=== PATIENT | female | born 1955 | race Caucasian/White ===

== ENCOUNTER 2016-12-11 05:55 | Day surgery (SDC) | payer BC ==
[2016-12-11] MEDS ORDERED: DIPRIVAN 200 MG/20 ML IV ONE (05:56)
[2016-12-11] MEDS ORDERED: Ketamine HCl 50 MG/ML IV ONE (05:56)
[2016-12-11 06:17] VITALS: O2SAT 96
[2016-12-11] MEDS ORDERED: Lactated Ringers 1,000 ML IV SCH (06:30)
[2016-12-11 08:15] VITALS: PULSE 58
[2016-12-11] MEDS ORDERED: Lactated Ringers 1,000 ML IV ONE (08:33)
[2016-12-11 08:48] VITALS: BP 99/61
--- NOTE | 2016-12-11 09:45 | OP ---
SURGERY DATE/TIME: 12/11/2016 0700 PREOPERATIVE DIAGNOSIS: Screening colonoscopy. POSTOPERATIVE DIAGNOSIS: Normal colon. PROCEDURE: Colonoscopy. SURGEON: Markus Sebastian M.D. ANESTHESIA: MAC by Aric Dyer CRNA. ESTIMATED BLOOD LOSS: None. SPECIMENS: None. DESCRIPTION OF PROCEDURE: After informed written consent was obtained, the patient was taken to the endoscopy suite. A digital rectal exam showed normal sphincter tone and no internal lesions. The scope was inserted into the rectum and sequentially the entire colonic mucosa was traversed. The level of cecum was reached and verified with direct visualization of ileocecal valve. Upon withdrawal careful mucosal inspection revealed no gross abnormalities. Prior to withdrawal retroflexion was performed and was within normal limits. The scope was removed and the patient was transferred to the recovery room in excellent condition.
== END 2016-12-11 08:53 | disposition home or self-care (01) ==
LOC: SDC 05:55
PROVIDERS: ATTEND Family Medicine
PROC: 0DJD8ZZ Inspection of Lower Intestinal Tract, Via Natural or Artificial Opening Endoscopic (ICD-10-PCS; principal; 2016-12-11)
DX: Z12.11 Encounter for screening for malignant neoplasm of colon (principal); Z80.0 Family history of malignant neoplasm of digestive organs
CPT/HCPCS: 00810; J2704

== ENCOUNTER 2018-04-24 16:27 | Emergency (ER) | payer BC ==
[2018-04-24] MEDS ORDERED: MORPHINE SULFATE 10 MG/ML IV ONE (16:54)
[2018-04-24] MEDS ORDERED: Zofran 4 MG/2 ML VIAL IV ONE (16:54)
[2018-04-24] MEDS ORDERED: MORPHINE SULFATE 10 MG/ML ONE (16:59)
[2018-04-24] MEDS ORDERED: Sodium Chloride 0.9% 1000 ML 1,000 ML ONE (16:59)
[2018-04-24] MEDS ORDERED: Sodium Chloride 0.9% 1000 ML 1,000 ML IV SCH (17:00)
--- NOTE | 2018-04-24 17:01 | ERPHSYRPT ---
- History of Present Illness Time Seen by Provider: 04/24/18 16:45 Historian: patient Exam Limitations: clinical condition Patient Subjective Stated Complaint: STATES HAD SUDDEN ONSET OF MIDSTERNAL CHEST PAIN THAT GETS WORSE WITH DEEP BREATHING. CRYING AT TIMES, STATING SHE'S REALLY SCARED. BROTHER ONE YEAR AGO FROM A HEART ATTACK. Triage Nursing Assessment: AMBULATED TO ROOM PER SELF. SKIN W/D, COLOR NORMAL, RESP NONLABORED. PATIENT TEARFUL AND ANXIOUS. BREATH SOUNDS NORMAL, HEART TONES REGULAR. DENIES ANY HX OF HEART DISEASE. Physician History: PATIENT COMPLAINS OF ACUTE ONSET OF SEVERE EPIGASTRIC PAIN ONSET 2 HOURS PREVIOUS TO ARRIVAL, PAIN SCALE 10/10 INITIALLY, DECREASED TO 6/10 UPON ARRIVAL. DENIES NAUSEA, EMESIS OR RADIATION OF PAIN TO HER BACK. DENIES DYSPNEA , CHEST PAIN, DIAPHORESIS OR PALPITATIONS. Timing/Duration: today Activities at Onset: none Quality: sharpness, stabbing Abdominal Pain Onset Location: RUQ, epigastric Pain Radiation: no radiation Severity of Pain-Max: severe Severity of Pain-Current: moderate Modifying Factors: Improves With: nothing Associated Symptoms: denies symptoms Previous symptoms: no prior history Allergies/Adverse Reactions: No Known Drug Allergies Allergy (Verified 04/24/18 16:44) Hx Tetanus, Diphtheria Vaccination/Date Given: Yes Hx Influenza Vaccination/Date Given: Yes Hx Pneumococcal Vaccination/Date Given: No - Review of Systems Constitutional: No Fever, No Chills Eyes: No Symptoms Ears, Nose, & Throat: No Symptoms Respiratory: No Symptoms, No Cough, No Dyspnea Cardiac: No Symptoms, No Chest Pain, No Edema, No Syncope Abdominal/Gastrointestinal: Abdominal Pain, No Nausea, No Vomiting, No Diarrhea Genitourinary Symptoms: No Symptoms, No Dysuria Musculoskeletal: No Symptoms, No Back Pain, No Neck Pain Skin: No Rash Neurological: No Dizziness, No Focal Weakness, No Sensory Changes Psychological: No Symptoms Endocrine: No Symptoms All Other Systems: Reviewed and Negative - Past Medical History Pertinent Past Medical History: Yes Neurological History: No Pertinent History ENT History: No Pertinent History Cardiac History: No Pertinent History Respiratory History: No Pertinent History Endocrine Medical History: No Pertinent History Musculoskeletal History: Osteoporosis GI Medical History: No Pertinent History History: No Pertinent History Psycho-Social History: No Pertinent History Female Reproductive Disorders: Other Other Medical History: states hx of ovarian cyst,"have osteop. but don't want to take medicine for that yet" - Past Surgical History Past Surgical History: Yes Neuro Surgical History: No Pertinent History Cardiac: No Pertinent History Respiratory: No Pertinent History Gastrointestinal: No Pertinent History Genitourinary: No Pertinent History Musculoskeletal: Other Female Surgical History: Section, Other Other Surgical History: ovarian cyst removed, fasciaotomy lefty feet, x one - Social History Smoking Status: Former smoker Exposure to second hand smoke: No Drug Use: none Patient Lives Alone: No - Female History Hx Now: No - Nursing Vital Signs Nursing Vital Signs: Initial Vital Signs Pulse Rate 56 L 04/24/18 16:32 Respiratory Rate 18 04/24/18 16:32 Blood Pressure 153/78 04/24/18 16:32 O2 Sat by Pulse Oximetry 100 04/24/18 16:32 Pain Scale Pain Intensity 0 - Physical Exam General Appearance: mild distress Eye Exam: PERRL/EOMI, eyes nml inspection Ears, Nose, Throat Exam: normal ENT inspection, pharynx normal, moist mucous membranes Neck Exam: normal inspection, non-tender, supple, full range of motion Respiratory Exam: normal breath sounds, lungs clear, No respiratory distress Cardiovascular Exam: regular rate/rhythm, normal heart sounds Gastrointestinal/Abdomen Exam: soft, normal bowel sounds (MARKED EPIGASTRIC AND RIGHT UPPER QUAD TENDERNESS), No tenderness, No mass Back Exam: normal inspection, normal range of motion, No CVA tenderness, No vertebral tenderness Extremity Exam: normal inspection, normal range of motion, pelvis stable Neurologic Exam: alert, oriented x 3, cooperative, normal mood/affect, nml cerebellar function, sensation nml, No motor deficits Skin Exam: normal color, warm, dry SpO2: 100 - Course EKG Interpreted by Me: RATE, Sinus Rhythm, Sinus Akash, NORMAL AXIS - Radiology Exams Chest X-ray Interpretation: Interpreted by me, Negative, No Infiltrates - CT Exams Abdomen/Pelvis CT Interpretation: Tele-radiologist Report (THERE IS MILD COLONIC DIVERTICULOSIS WITHOUT EVIDENCE OF ACUTE DIVERTICULITIS, NORMAL APPENDIX,NORMAL GALLBLADDER AND BILE DUCTS WITH NO STONES, OR DUCTAL DILATION) Ordered Tests: Active Orders 24 hr Category Date Time Status Clean Catch Urine Specimen STAT Care 04/24/18 16:54 Active EKG-ER Only STAT Care 04/24/18 16:54 Active IV Insertion STAT Care 04/24/18 16:54 Active ABDOMEN AND PELVIS W CONTRAST [CT] Stat Exams 04/24/18 16:55 Taken CHEST 1 VIEW (PORTABLE) Stat Exams 04/24/18 16:55 Taken AMYLASE Stat Lab 04/24/18 17:00 Completed CBC W DIFF Stat Lab 04/24/18 17:00 Completed CMP Stat Lab 04/24/18 17:00 Completed LIPASE Stat Lab 04/24/18 17:00 Completed TROPONIN Q3H Lab 04/24/18 17:00 Completed TROPONIN Q3H Lab 04/24/18 20:00 Ordered TROPONIN Q3H Lab 04/24/18 23:00 Ordered TROPONIN Q3H Lab 04/25/18 02:00 Ordered TROPONIN Q3H Lab 04/25/18 05:00 Ordered UA W/RFX UR CULTURE Stat Lab 04/24/18 17:40 Completed Medication Summary Generic Name Dose Route Start Last Admin Trade Name Freq PRN Reason Stop Dose Admin Sodium Chloride 1,000 mls @ 200 mls/hr 04/24/18 17:00 04/24/18 17:01 Sodium Chloride 0.9% 1000 Ml IV 05/24/18 16:59 200 mls/hr .Q5H SKYLAR Administration Discontinued Medications Generic Name Dose Route Start Last Admin Trade Name Freq PRN Reason Stop Dose Admin Morphine Sulfate 6 mg 04/24/18 16:54 04/24/18 17:00 Morphine Sulfate 10 Mg/Ml IV 04/24/18 16:55 6 mg STAT ONE Administration Morphine Sulfate Confirm 04/24/18 16:59 Morphine Sulfate 10 Mg/Ml Administered 04/24/18 17:00 Dose 10 mg .ROUTE .STK-MED ONE Ondansetron HCl 4 mg 04/24/18 16:54 04/24/18 17:11 Zofran 4 Mg/2 Ml Vial IV 04/24/18 16:55 4 mg STAT ONE Administration Ondansetron HCl Confirm 04/24/18 17:11 Zofran 4 Mg/2 Ml Vial Administered 04/24/18 17:12 Dose 4 mg .ROUTE .STK-MED ONE Pantoprazole Sodium 40 mg 04/24/18 19:03 Protonix 40 Mg Iv IV 04/24/18 19:04 STAT ONE Pantoprazole Sodium Confirm 04/24/18 19:04 Protonix 40 Mg Iv Administered 04/24/18 19:05 Dose 40 mg IV .STK-MED ONE Lab/Rad Data: Laboratory Result Diagrams 04/24/18 17:00 04/24/18 17:00 Laboratory Results 04/24/18 04/24/18 04/24/18 Range/Units 17:40 17:00 17:00 WBC (4.0-10.5) K/mm3 RBC (4.1-5.4) M/mm3 Hgb (12.0-16.0) gm/dl Hct (35-47) % MCV (78-100) fl MCH (26-32) pg MCHC (32-36) g/dl RDW (11.5-14.0) % Plt Count (150-450) K/mm3 MPV (6-9.5) fl Gran % (36.0-66.0) % Eos # (Auto) (0-0.5) Absolute Lymphs (auto) (1.0-4.6) Absolute Monos (auto) (0.0-1.3) Lymphocytes % (24.0-44.0) % Monocytes % (0.0-12.0) % Eosinophils % (0.00-5.0) % Basophils % (0.0-0.4) % Absolute Granulocytes (1.4-6.9) Basophils # (0-0.4) Sodium 141 (137-145) mmol/L Potassium 5.2 H (3.5-5.1) mmol/L Chloride 103 (98-107) mmol/L Carbon Dioxide 31 H (22-30) mmol/L Anion Gap 11.5 (5-15) MEQ/L BUN 17 (7-17) mg/dL Creatinine 0.76 (0.52-1.04) mg/dL Estimated GFR > 60.0 ML/MIN Glucose 101 (74-106) mg/dL Calcium 10.0 (8.4-10.2) mg/dL Total Bilirubin 0.60 (0.2-1.3) mg/dL AST 42 H (14-36) U/L ALT 49 H (0-35) U/L Alkaline Phosphatase 68 (38-126) U/L Troponin I < 0.012 (0.000-0.034) ng/mL Serum Total Protein 7.4 (6.3-8.2) g/dL Albumin 4.4 (3.5-5.0) g/dL Amylase 70 (30-110) U/L Lipase 42 (23-300) U/L Urine Color STRAW (YELLOW) Urine Appearance CLEAR (CLEAR) Urine pH 8.0 (5-6) Ur Specific [place] 1.005 (1.005-1.025) Urine Protein NEGATIVE (Negative) Urine Ketones NEGATIVE (NEGATIVE) Urine Blood NEGATIVE (0-5) Vazquez/ul Urine Nitrite NEGATIVE (NEGATIVE) Urine Bilirubin NEGATIVE (NEGATIVE) Urine Urobilinogen NEGATIVE (0-1) mg/dL Ur Leukocyte Esterase NEGATIVE (NEGATIVE) Urine WBC (Auto) NONE (0-5) /HPF Urine RBC (Auto) NONE (0-2) /HPF U Epithel Cells (Auto) NONE (FEW) /HPF Urine Bacteria (Auto) NONE (NEGATIVE) /HPF Unidentified Crystals 2-5 (NEGATIVE) /HPF Urine Culture Reflexed NO (NO) Urine Glucose NEGATIVE (NEGATIVE) mg/dL 04/24/18 Range/Units 17:00 WBC 5.1 (4.0-10.5) K/mm3 RBC 4.67 (4.1-5.4) M/mm3 Hgb 13.7 (12.0-16.0) gm/dl Hct 41.5 (35-47) % MCV 88.9 (78-100) fl MCH 29.3 (26-32) pg MCHC 33.0 (32-36) g/dl RDW 13.1 (11.5-14.0) % Plt Count 194 (150-450) K/mm3 MPV 9.6 H (6-9.5) fl Gran % 51.6 (36.0-66.0) % Eos # (Auto) 0.08 (0-0.5) Absolute Lymphs (auto) 1.61 (1.0-4.6) Absolute Monos (auto) 0.73 (0.0-1.3) Lymphocytes % 31.8 (24.0-44.0) % Monocytes % 14.4 H (0.0-12.0) % Eosinophils % 1.6 (0.00-5.0) % Basophils % 0.6 (0.0-0.4) % Absolute Granulocytes 2.62 (1.4-6.9) Basophils # 0.03 (0-0.4) Sodium (137-145) mmol/L Potassium (3.5-5.1) mmol/L Chloride (98-107) mmol/L Carbon Dioxide (22-30) mmol/L Anion Gap (5-15) MEQ/L BUN (7-17) mg/dL Creatinine (0.52-1.04) mg/dL Estimated GFR ML/MIN Glucose (74-106) mg/dL Calcium (8.4-10.2) mg/dL Total Bilirubin (0.2-1.3) mg/dL AST (14-36) U/L ALT (0-35) U/L Alkaline Phosphatase (38-126) U/L Troponin I (0.000-0.034) ng/mL Serum Total Protein (6.3-8.2) g/dL Albumin (3.5-5.0) g/dL Amylase (30-110) U/L Lipase (23-300) U/L Urine Color (YELLOW) Urine Appearance (CLEAR) Urine pH (5-6) Ur Specific [place] (1.005-1.025) Urine Protein (Negative) Urine Ketones (NEGATIVE) Urine Blood (0-5) Vazquez/ul Urine Nitrite (NEGATIVE) Urine Bilirubin (NEGATIVE) Urine Urobilinogen (0-1) mg/dL Ur Leukocyte Esterase (NEGATIVE) Urine WBC (Auto) (0-5) /HPF Urine RBC (Auto) (0-2) /HPF U Epithel Cells (Auto) (FEW) /HPF Urine Bacteria (Auto) (NEGATIVE) /HPF Unidentified Crystals (NEGATIVE) /HPF Urine Culture Reflexed (NO) Urine Glucose (NEGATIVE) mg/dL - Progress Progress: improved Progress Note: 04/24/18 19:13 IV NORMAL SALINE 200ML/HR, ZOFRAN 4MG, MORPHINE 6MG IV. PROTONIX 40MG IV Counseled pt/family regarding: lab results, diagnosis, need for follow-up, rad results - Departure Time of Disposition: 19:15 Departure Disposition: Home Clinical Impression: ACUTE BILARY COLIC Condition: Stable Critical Care Time: No Referrals: JESUS MANUEL MUELLER [Primary Care Provider] - Additional Instructions: BEGIN PROTONIX 20MG DAILY FOR 2 WEEKS. ZOFRAN 4MG EVERY 6 HOURS FOR NAUSEA. [place] 5/325 EVERY 6 HOURS FOR PAIN. AVOID DRIVING MOTOR VEHICLE WHILE TAKING [place]. CONSULT YOUR PRIMARY CARE PROVIDER FOR EVALUATION AND REVIEW OF EMERGENCY VISIT. RETURN TO EMERGENCY ROOM FOR RECURRENCE OF PAIN. Prescriptions: Hydrocodone/APAP 5-325 Tab^^^ [[place] 5-325 Tablet^^^] 1 tab PO Q6HPRN PRN #10 tablet MDD 4 PRN Reason: Pain Ondansetron ODT 4 MG [Zofran Odt 4 mg] 4 mg PO Q6H PRN PRN #10 tab.rapdis PRN Reason: Nausea Pantoprazole 20 mg [Protonix 20MG Tablet] 20 mg PO DAILY #15 tab
[2018-04-24 17:10] LABS: BASOPHIL % 0.6 % (0.0-0.4); Basophil (Absolute #) 0.03 (0-0.4); Eosinophil % 1.6 % (0.00-5.0); Eosinophil (Absolute #) 0.08 (0-0.5); Granulocyte Absolute (ANC) 2.62 (1.4-6.9); Granulocytes % 51.6 % (36.0-66.0); Hematocrit 41.5 % (35-47); Hemoglobin 13.7 gm/dl (12.0-16.0); Lymphocyte (Absolute #) 1.61 (1.0-4.6); Lymphocytes % 31.8 % (24.0-44.0); Mean Cell Volume 88.9 fl (78-100); Mean Corpuscular Hemoglobin 29.3 pg (26-32); Mean Platelet Volume 9.6 fl (6-9.5); Monocyte (Absolute #) 0.73 (0.0-1.3); Monocytes % 14.4 % (0.0-12.0); Platelet Count 194 K/mm3 (150-450); Red Blood Count 4.67 M/mm3 (4.1-5.4); Red Cell Distribution Width 13.1 % (11.5-14.0); White Blood Count 5.1 K/mm3 (4.0-10.5)
[2018-04-24] MEDS ORDERED: Zofran 4 MG/2 ML VIAL ONE (17:11)
[2018-04-24 17:38] LABS: ALBUMIN 4.4 g/dL (3.5-5.0); ALKALINE PHOSPHATASE 68 U/L (38-126); AMYLASE 70 U/L (30-110); ANION GAP 11.5 MEQ/L (5-15); BLOOD UREA NITROGEN 17 mg/dL (7-17); CHLORIDE 103 mmol/L (98-107); Carbon Dioxide 31 mmol/L (22-30); Creatinine 1 0.76 mg/dL (0.52-1.04); Glucose 101 mg/dL (74-106); LIPASE 42 U/L (23-300); Potassium 5.2 mmol/L (3.5-5.1); SGOT/AST 42 U/L (14-36); SGPT/ALT 49 U/L (0-35); SODIUM 141 mmol/L (137-145); Total Protein 7.4 g/dL (6.3-8.2)
[2018-04-24 18:04] LABS: Appearance CLEAR (CLEAR); Bilirubin NEGATIVE (NEGATIVE); Blood NEGATIVE Ery/ul (0-5); Glucose NEGATIVE (NEGATIVE); Ketones NEGATIVE (NEGATIVE); Leukocyte Esterase NEGATIVE (NEGATIVE); Nitrite NEGATIVE (NEGATIVE); Protein,Urine Dip NEGATIVE (Negative); Specific Gravity 1.005 (1.005-1.025); Urobilinogen NEGATIVE mg/dL (0-1)
[2018-04-24] MEDS ORDERED: PROTONIX 40 MG IV IV ONE ×2 (19:03→19:04)
[2018-04-24 19:38] VITALS: BP 119/68; PULSE 77; O2SAT 98
--- NOTE | 2018-04-24 22:56 | XRAY ---
Indication: Right upper quadrant pain. Multiple contiguous axial images obtained through the abdomen and pelvis using 80 cc Isovue 370 contrast only. Comparison: None Lung bases demonstrates minimal bibasilar atelectasis/scarring. No infiltrate or effusion. Heart is not enlarged. Noncontrasted stomach and bowel loops appear nonobstructed. Normal appendix. Moderate diffuse scattered colonic fecal debris throughout including rectum. No free fluid/air. 5 mm right mid renal cortical cyst. Remaining liver, gallbladder, pancreas, spleen, adrenal glands, kidneys, ureters, bladder, and uterus appear unremarkable. Minimal aortic calcifications. No AAA or pathologic retroperitoneal lymphadenopathy. Osseous structures intact with multilevel thoracolumbar Schmorl nodes, L4 limbus vertebrae, a mild dextroscoliosis. Tiny fatty umbilical hernia. Impression: 1. Moderate fecal stasis without obstruction, tiny right renal cyst, and tiny fatty umbilical hernia. 2. Remaining CT abdomen/pelvis with contrast exam is negative. Comment: Preliminary interpretation was made by [facility] who does not report above noncritical findings. CTDI 16.45
--- NOTE | 2018-04-24 22:56 | XRAY ---
Indication: Dyspnea. Comparison: None Portable chest demonstrates normal heart and lungs. Bony thorax intact with mild degenerative changes.
== END 2018-04-24 19:34 | disposition home or self-care (01) ==
LOC: ED 16:27
DX: K80.50 Calculus of bile duct without cholangitis or cholecystitis without obstruction (principal); R07.89 Other chest pain; R10.13 Epigastric pain; R10.11 Right upper quadrant pain
CPT/HCPCS: 36000; 36415; 71045; 74177; 80053; 81001; 82150; 83690; 84484; 85025; 93005; 96360; 96361; 96374; 96375; 99284; J2270; J2405

== ENCOUNTER 2021-09-08 03:45 | Emergency (ER) | payer BC ==
[2021-09-08] MEDS ORDERED: solu-MEDROL 125 MG, Sterile H2O 10 ml 2 ML IM ONE ×2 (04:10)
[2021-09-08] MEDS ORDERED: Sterile H2O 10 ml IJ ONE (04:11)
[2021-09-08] MEDS ORDERED: solu-MEDROL ONE (04:12)
[2021-09-08] MEDS ORDERED: PERCOCET TABLET 5/325MG PO STA ×2 (04:30)
--- NOTE | 2021-09-08 04:39 | ERPHSYRPT ---
- History of Present Illness Time Seen by Provider: 09/08/21 04:10 Source: patient Patient Subjective Stated Complaint: pt states she has had pain in shoulder off and on following surgery on right shoulder 14 months ago. Pt rates p;ain as 12/17 Triage Nursing Assessment: arrived in er crying and holding right shoulder. pt states she has been having pain since yesterday. Physician History: This is a 66-year-old right-handed white female patient of Dr. Ignacio Jacob who 14 months ago underwent a right rotator cuff surgery. Since her surgery she states that she has had intermittent difficulty in the right shoulder with pain. Postoperatively, she had 8 months of physical therapy because of the aching she was experiencing. In December 2020 patient was given a prescription for [place] 5/325 and she still has 2 tablets left. 3 weeks ago, patient was pruning in her yard and states that she suddenly had pain and could not move her right arm. She did not fall. The pain subsided. 2 days ago, the patient was at a movie theater with her grandson and went to reach for the popcorn when she suddenly had the pain recur and could not move her arm. The pain improved to the point where she could at least move it until last night when she had the pain recur without any kind of activity. She chose not to take any of the remaining 2 tablets of [place] 5/325 and instead took 3 ibuprofen 200 mg tablets. She has not had a fall or traumatic injury to the right shoulder at any time. She does not have chest pain. She does not have shortness of breath. She was concerned about a problem with the surgical site at the right shoulder. Occurred: yesterday Quality: aching, throbbing Severity of Pain-Max: moderate Severity of Pain-Current: mild (To moderate) Extremities Pain Location: shoulder: right Modifying Factors: Improves With: movement Associated Symptoms: none, No chest discomfort, No chest pain, No dyspnea, No neck pain, No short of breath, No vomiting Allergies/Adverse Reactions: No Known Drug Allergies Allergy (Verified 09/08/21 04:01) Hx Tetanus, Diphtheria Vaccination/Date Given: Yes Hx Influenza Vaccination/Date Given: Yes Hx Pneumococcal Vaccination/Date Given: No Travel Risk - International Travel Have you traveled outside of the country in past 3 weeks: No - Coronavirus Screening Are you exhibiting any of the following symptoms?: No Close contact with a COVID-19 positive Pt in past 14-21 Days: No - Vaccine Status Have you recieved a Covid-19 vaccination: Yes 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 - Vaccination Dates Dates if Unknown: unknown - Review of Systems Constitutional: No Symptoms Eyes: No Symptoms Ears, Nose, & Throat: No Symptoms Respiratory: No Symptoms Cardiac: No Symptoms Abdominal/Gastrointestinal: No Symptoms Genitourinary Symptoms: No Symptoms Musculoskeletal: Joint Pain (Right shoulder) Skin: No Symptoms Neurological: No Symptoms Psychological: No Symptoms Endocrine: No Symptoms Hematologic/Lymphatic: No Symptoms Immunological/Allergic: No Symptoms All Other Systems: Reviewed and Negative - Past Medical History Pertinent Past Medical History: Yes Neurological History: No Pertinent History ENT History: No Pertinent History Cardiac History: No Pertinent History Respiratory History: No Pertinent History Endocrine Medical History: No Pertinent History Musculoskeletal History: Fibromyalgia, Osteoporosis GI Medical History: No Pertinent History History: No Pertinent History Psycho-Social History: No Pertinent History Female Reproductive Disorders: Other Other Medical History: states hx of ovarian cyst - Past Surgical History Past Surgical History: Yes Neuro Surgical History: No Pertinent History Cardiac: No Pertinent History Respiratory: No Pertinent History Gastrointestinal: No Pertinent History Genitourinary: No Pertinent History Musculoskeletal: Other Female Surgical History: Section, Other Other Surgical History: ovarian cyst removed, fasciaotomy lefty feet, x one - Social History Smoking Status: Former smoker Exposure to second hand smoke: No Drug Use: marijuana Patient Lives Alone: No - Nursing Vital Signs Nursing Vital Signs: Initial Vital Signs Temperature 98.7 F 09/08/21 03:49 Pulse Rate 60 09/08/21 03:49 Respiratory Rate 18 09/08/21 03:49 Blood Pressure 122/63 09/08/21 03:49 O2 Sat by Pulse Oximetry 99 09/08/21 03:49 Pain Scale Pain Intensity 10 - Physical Exam General Appearance: no apparent distress, alert, anxiety Eyes, Ears, Nose, Throat Exam: normal ENT inspection, moist mucous membranes Neck Exam: normal inspection, non-tender, supple, full range of motion Cardiovascular/Respiratory Exam: chest non-tender, no respiratory distress Abdominal Exam: non-tender Back Exam: normal inspection, normal range of motion, No CVA tenderness, No vertebral tenderness Shoulder Exam: normal inspection, no evidence of injury, limited ROM, soft tissue tenderness Elbow/Forearm Exam: normal inspection, non-tender, no evidence of injury, normal ROM Wrist Exam: normal inspection, non-tender, no evidence of injury, normal ROM Hand Exam: normal inspection, non-tender, no evidence of injury, normal ROM Neuro/Tendon Exam: normal sensation, normal motor functions, normal tendon functions, no evidence tendon injury Mental Status Exam: alert, oriented x 3, cooperative Skin Exam: normal color, warm, dry SpO2 Interpretation: normal O2 Delivery: Room Air - Course Nursing assessment & vital signs reviewed: Yes Ordered Tests: Active Orders 24 hr Category Date Time Status SHOULDER Stat Exams 09/08/21 05:00 Taken Medication Summary Discontinued Medications Generic Name Dose Route Start Last Admin Trade Name Taiq PRN Reason Stop Dose Admin Methylprednisolone Sodium 0 mg 09/08/21 04:10 09/08/21 04:15 Succinate 125 mg/ Sterile IM 09/08/21 04:11 125 mg Water 2 ml STAT ONE Administration Methylprednisolone Sodium Succinate Confirm 09/08/21 04:12 Methylprednis Sod Succ 125 Mg/2 Ml Vial Administered 09/08/21 04:13 Dose 125 mg .ROUTE .STK-MED ONE Oxycodone/Acetaminophen 1 tab 09/08/21 04:30 09/08/21 04:47 Oxycodone Hcl/Apap 5 Mg/325 Mg Tablet PO 09/08/21 04:31 1 tab STAT STA Administration Oxycodone/Acetaminophen 2 tab 09/08/21 04:30 09/08/21 04:47 Oxycodone Hcl/Apap 5 Mg/325 Mg Tablet PO 09/08/21 04:31 2 tab SENT HOME W/ PATIENT STA Administration Oxycodone/Acetaminophen Confirm 09/08/21 04:43 Oxycodone Hcl/Apap 5 Mg/325 Mg Tablet Administered 09/08/21 04:44 Dose 3 tab .ROUTE .STK-MED ONE Sterile Water Confirm 09/08/21 04:11 Water For Injection,Sterile 10 Ml Vial Administered 09/08/21 04:12 Dose 10 ml IJ .STK-MED ONE - Progress Progress: improved, pain not gone completely Progress Note: 09/08/21 05:11 X-ray right shoulder shows no acute fracture or dislocation Counseled pt/family regarding: diagnosis, need for follow-up, rad results - Departure Departure Disposition: Home Clinical Impression: Chronic right shoulder pain Condition: Stable Critical Care Time: No Referrals: JESUS MANUEL STRATTON [Primary Care Provider] - Follow up/PCP as directed Additional Instructions: Take your medication as prescribed. Follow-up with your orthopedic surgeon and primary care provider on 09/11/2021 for further evaluation and management. Prescriptions: Oxycodone HCl/Acetaminophen [Percocet 5-325 mg Tablet] 1 each PO Q8H PRN PRN #6 tablet MDD 3 PRN Reason: Moderate To Severe Pain Prednisone 10 mg [Deltasone 10 mg] 10 mg PO TID #12 tablet
[2021-09-08] MEDS ORDERED: PERCOCET TABLET 5/325MG ONE (04:43)
[2021-09-08 05:02] VITALS: PULSE 60; O2SAT 99
[2021-09-08 05:03] VITALS: BP 122/63
--- NOTE | 2021-09-08 07:57 | XRAY ---
Indication: Pain. Comparison: November 11, 2019. 3 view right shoulder again demonstrates osteopenia and mild AC degenerative arthropathy. Proximal humerus demonstrates new 1.1 cm unicameral cyst. No other bony, articular, or soft tissue abnormalities.
== END 2021-09-08 05:29 | disposition home or self-care (01) ==
LOC: ED 03:45
DX: G89.29 Other chronic pain (principal); M25.511 Pain in right shoulder; Z79.891 Long term (current) use of opiate analgesic; Z79.52 Long term (current) use of systemic steroids
CPT/HCPCS: 73030; 96372; 99283; J2930; A9270-GY